=== PATIENT | female | born 1980 | race Caucasian/White ===

== ENCOUNTER 2021-09-16 13:33 | Outpatient (CLI) | payer MEDICAID, SELFPAY ==
--- OUTSIDE RECORDS SUMMARY | 2021-08-12 10:19 | XMS_ITS | Continuity of Care Document ---
:1980 Author Care Team Providers Name Role Phone SEEN Primary Care Physician Unavailable JAYY Cruz Attending Physician Chief Complaint and Reason for Visit Chief Complaint OB Allergies, Adverse Reactions, Alerts Allergen Type Severity Reaction Last Verified Status Updated Amoxicillin Allergy Mild Hives July 20, Yes Active 2021 Penicillin v Allergy Mild hives July 20, Yes Active 2021 Social History Smoking Status Status Start Date End Date Date of Observat ion Never smoked tobacco July 20 11:19am (finding) Additional Data Assigned Sex Female Medications Medication Status Dose Units Route Directions Qty Days Start End Ins tructions Date Date Cholecalcifer Disconti 400 UNIT PO Daily Novem ol (Vitamin nued er D-3) 400 Unit , TAB 2015 11:02a m Clindamycin Disconti 1 % EX Twice A Day June Phosphate nued , (Clindamycin 2007 Phosphate 11:22a Lotion) 1 % m LOT Diphtheria/Te Disconti 0.5 ML IM Once 1 tanus/Acell nued r , er Pertussis 2007, (Adacel) 0.5 8:38am 2007 Ml INJ 11:13a m Fexofenadine- Disconti 1 TAB PO Daily July Pseudoephedri nued , ne (Rachell-D 2021 24 Hour 10:15a Allergy) 24 m Hour TAB Folic Acid Disconti 400 MCG PO Daily Decemb nued er 2013 1:02pm Influenza Disconti 0.2 ML NA Once 1 b Virus Vacc nued r 2nd, er Triv Types 2010 03, A&B (Flumist 3:52pm 2010 Nasal Vaccine 3:55pm [id number]) 0.2 Ml SYR Influenza Disconti 0.5 ML IM Once 1 Novembe Novemb Virus Vacc nued r 30th, er Triv Types 2009 30th, A&B (Fluzone 10:06am 2009 Unit Dose 10:13a ) 0.5 m Ml INJ Influenza Disconti 0.5 ML IM Once 1 Novembe Novemb Virus Vacc nued r 21st, er Triv Types 2007 14, A&B (Fluarix) 8:38am 2007 0.5 Ml INJ 11:13a m Influenza Disconti 0.5 ML IM Once 1 June Virus Vacc nued r 3rd, 15th, Triv Types 2005 2007 A&B (Fluarix) 3:59pm 11:22a 0.5 Ml INJ m Influenza Disconti 0.5 ML IM Once 1 Decee Dece Virus Vacc nued r 28th, er Triv Types 2005, A&B (Fluarix) 4:42pm 2005 0.5 Ml INJ 4:47pm Influenza Disconti 0.2 ML NA Once 1 Novembe Novemb Virus Vaccine nued r 17th, er Live (Flumist 2013 17, Nasal (2-49 3:27pm 2013 Years) 3:28pm ) 1 Leonora LEONORA Influenza Disconti 0.2 ML NA Once 1 [facility] Virus Vaccine nued r 5th, er Live (Flumist 2012 06, Nasal (2-49 10:50am 2012 Years) 11:33a 2013-) 1 m Leonora LEONORA Influenza Disconti 0.2 ML NA Once 1 [facility] Virus Vaccine nued r 7th, er Live Q 2014 08, (Flumist 9:39am 2014 Nasal (2-49 9:46am Years) 2014-) 1 Leonora LEONORA Influenza Disconti 0.5 ML IM Once 1 Novembe Novemb Virus Vaccine nued r 27th, er Split 2016, (Fluzone 1:46pm 2016 Quadrivalent 2:08pm 2016 0.5 Ml) 1 Inj INJ Influenza Disconti 0.5 ML IM Once 1 Novembe Novemb Virus Vaccine nued r 8th, er Split 2015 09, (Fluzone 11:30am 2015 Quadrivalent 11:36a (3 Yrs And m Older)2015- ) 1 Inj INJ Lactic Acid Disconti 12 % EX Twice A Day 1 Februar June apply cream (Ammonium nued y , , 2-3 time s per Lactate) 12 % 2006 2007 day -d ispense CRE 2:07pm 11:22a one bottle m Levocetirizin Disconti 5 MG PO Bedtime 18 August e nued , Dihydrochlori 2021 de (Xyzal 10:15a Allergy 24HR) m 5 Mg TAB Multiple Disconti 1 EA PO Daily Decemb Vitamin nued er (Multi-Vitami , n) TAB 2013 1:02pm Norethindrone Disconti 0.35 MG PO Daily Septem (Contraceptiv nued cesar e) (Susan) , 0.35 Mg TAB 2008 11:39a m Ondansetron Disconti 4 MG PO Three Times May Hcl (Zofran) nued A Day , , 4 Mg TAB 2007 2007 11:13am 11:22a m Tetanus-Dipht Disconti 0.5 ML IM Once June heria Toxoids nued , , (Td (Tenivac) 2017 2017 1 Ml INJ 1:09pm 1:22pm Tramadol Hcl Disconti 50 MG PO Every 6 15 Novembe Novemb nued Hours as r 8th, er needed 2015, 11:34am 2016 11:00a m Triamcinolone Disconti 40 MG IM Once June Acetonide nued , , (Kenalog) 40 2016 2016 Mg/1 Ml INJ 1:40pm 1:44pm Vit Disconti 1 TABLET PO Daily 100 Novemb B12/Iron/Foli nued er c Ac/Intrin 2009 ( 10:02a Multivit-Min m W/Fe-Fa) TAB Immunizations Immunization Event Date Not Given Dose Orchid Hand Lot Vac cine Reason Number Number Informatio n Statement (VIS) Deta il Influenza December 20 Sanofi Pasteur [id number] 2007 Inc Influenza December 21 Sanofi Pasteur [id number] 2009 Influenza December 22 Medimmune [id number] 2010 Influenza January 22 medimmune [id number] 2012 Influenza December 24 Medimmune [id number] 2013 Influenza January 24 Medimmune [id number] 2014 Influenza December 26 Sanofi [id number] 2015 Influenza December 27 Sanofi [id number] 2016 Tetanus/Diptheri July 09 SANOFI [id number] a 2017 Tdap December 20 Sanofi Pasteur [id number] (adolescent/adul 2007 t) Procedures Procedure Date Performed Status ASSAY GLUCOSE BLOOD QUANT July 20, 2021 completed Relevant Diagnostic Tests and/or Laboratory Data Laboratory Results Test Date/Time Result Interpretation Reference Result Perfo rming Range Comment Site Random July 20 60-115 [facility] Glucose 2021 11:05am 2000 No [facility] [address] [address] Vital Signs Vital Reading Result Reference Range Collection Date/ Time Height 69.680 [in_i] July 20, 2021 1 0:13am Height 177 cm July 20, 2021 1 0:13am Weight 167 [lb_av] July 20, 2021 1 0:13am Weight 75.151126 kg July 20, 2021 1 0:13am Body Temperature 98.2 [degF] July 20, 2021 10:13am Body Temperature 36.78 Dona July 20, 2021 10:13am BP Systolic 142 mm[Hg] July 20, 2021 1 0:13am BP Diastolic 82 mm[Hg] July 20, 2021 1 0:13am Heart Rate 60 /min July 20, 2021 1 0:13am Body surface area 1.93 m2 July 20, 2021 10:13am BMI (Body Mass Index) 24.2 kg/m2 July 20, 2021 10:13am Advance Directives Advance Directive Response Recorded Date/Time Does Pt have Health Care No March 13 015 12:02pm Directive? Has patient completed a No July 20, 2021 1 1:19am Health Care Directive? Insurance Providers Guarantor Samantha Tucker Address [address] [id number] Contact Info. Home Phone: Payer Policy Id Coverage Id Subscriber's Subscriber Id Effective E xpiration Name Date Date [facility] [id number] Samantha Tucker Medicaid Plan Encounters Encounter Location(s) Arrival/Admit Date Discharge/Depart Date Provider(s) Registered [place] July 20, 2021 [facility] 10:54am [place] [facility] Registered [facility] July 20, 2021 Richard Cruz 10:15am [place] [facility] Office Visit Women's Health July 20, 2021 Tonya Cruz - [facility] 10:15am [place] [employer]PARTMENT MANAGER Recent Diagnosis Onset Date Screening for diabetes mellitus Well woman exam with routine gynecological exam Screening for breast cancer Assessments Diagnosis Onset Date Resolution Status Screening for diabetes mellitus Well woman exam with routine gynecological exam Screening for breast cancer Plan of Treatment Future Tests Future scheduled test information is unavailable Pending Tests Pending diagnostic test information is unavailable Future Visits Future appointment information is unavailable Referrals to Other Providers Reason for Referral Start Provider Provider Contact Provider Address Referral Date Information Patient will call at a later date to schedule a consult with Dr Ordonez, here at [facility] Ordonez MD Work Phone: [facility]. Insurance eff and active. [address] [facility] [id number] Patient will call at a later date to schedule a consult with Dr Ordonez, here at [facility] Ordonez [facility] Work Phone: [facility]. Insurance eff and active. [address] [facility] [id number] Future Procedures Procedure Name Scheduled Date JOVANNA Bilat Mammo Scrn Future Medications Future medication information is unavailable Patient Instructions Abdominal Pain - Adult Cholelithiasis Goals Ambulatory Goals Reach or maintain optimal well being.
--- NOTE | 2021-09-16 13:40 | CRLHL7_ITS ---
For Patients: As a result of the Century Cures Act, medical imaging exams and procedure reports are released immediately into your electronic medical record. You may view this report before your referring provider. If you have questions, please contact your health care provider. BILATERAL MAMMOGRAM WITH COMPUTER-AIDED DETECTION TECHNIQUE: CC and MLO views were obtained. These mammographic images have been obtained using full-field digital technique. These mammographic images were interpreted with the benefit of computer-aided detection. COMPARISON FILM: Baseline. FINDINGS: The breasts are heterogeneously dense, which may obscure small masses IMPRESSION: There is no radiographic evidence for malignancy. ASSESSMENT: BI-RADS Category 1: Negative RECOMMENDATION: Routine screening mammogram in 1 year. A lay language report of this examination will be provided to the patient. Elliot Tolbert M.D. Diagnostic Radiologist [email or web address] AMBER/Dictated by: Elliot Tolbert MD @ 09/19/2021 9:12:00 AM (Electronically Signed)
== END 2021-09-16 13:34 | disposition home or self-care (01) ==
LOC: MAMMO 13:34
PROVIDERS: Visit Provider Registered Nurse
DX: Z12.31 Encounter for screening mammogram for malignant neoplasm of breast (principal); R92.2 Inconclusive mammogram
CPT/HCPCS: 77067

== ENCOUNTER 2022-08-18 12:31 | Outpatient (CLI) | payer MEDICAID, SELFPAY | END 2022-08-18 12:32 | disposition home or self-care (01) | PROVIDERS: Visit Provider Family Medicine | DX: Z00.00 Encounter for general adult medical examination without abnormal findings (principal); Z11.59 Encounter for screening for other viral diseases; Z13.6 Encounter for screening for cardiovascular disorders | CPT/HCPCS: 80053; 80061; 86803 ==

== ENCOUNTER 2023-05-24 10:45 | Emergency (ER) | payer OTHER, SELFPAY ==
[2023-05-24 10:48] VITALS: BP 140/79; PULSE 92; RESP 24; TEMP 36.9; O2SAT 97; BMI 25.8
[2023-05-24] MEDS: ALBUTEROL SULFATE 2.5 MG/3 ML VIAL.NEB NEB (11:16)
--- NOTE | 2023-05-24 11:30 | ED_ITS ---
HPI - SOB/Dyspnea General Date Seen: 05/24/23 Chief Complaint: Shortness of Breath/Dyspnea Stated Complaint: trouble breathing Time Seen by Provider: 05/24/23 10:55 Source: patient Mode of arrival: ambulatory Limitations: no limitations History of Present Illness HPI Narrative: Patient is a 42-year-old female with no pertinent medical problems presenting to emergency department for shortness of breath. States she has been having symptoms for the past day. Was no since she was gain flu-like symptoms yesterday. She then states states she has been having increased work of breathing has been feeling wheezy. States she had allergy induced asthma as a teen but has not had any lung issues since then. Denies fevers, chills, chest pain, abdominal pain, lightheadedness, dizziness, weakness, numbness. States the only symptom she has is shortness of breath. No other concerns noted Related Data Previous Rx's Medication Instructions Recorded albuterol sulfate 90 mcg/actuation 2 puff inhalation QID PRN 05/24/23 aerosol inhaler shortness of breath or wheezing #6.7 grams Allergies Allergy/AdvReac Type Severity Reaction Status Date / Time amoxicillin Allergy Mild Hives Verified 01/04/23 11:00 penicillin V Allergy Mild Hives Verified 01/04/23 11:00 Review of Systems Status of ROS: Reports: 10 or more systems reviewed and unremarkable except as noted in History and below [facility] Medical History HELLP syndrome ?O14.20 - HELLP syndrome (HELLP), unspecified trimester (ICD-10) Surgical History History of cholecystectomy ?Z90.49 - Acquired absence of other specified parts of digestive tract (ICD- 10) Tubal ligation status ?Z98.51 - Tubal ligation status (ICD-10) History of ?Z98.891 - History of uterine scar from previous surgery (ICD-10) Family History Father Alcohol dependence Depression Mother High cholesterol High blood pressure Social History Smoking Status: Never smoker Little interest or pleasure in doing things: several days Feeling down, depressed, or hopeless: several days Exam Narrative: Exam Narrative: Const: Well-nourished, Well-developed, in mild distress Eyes: PERRL, no conjunctival injection, and symmetrical lids HENT: Atraumatic external nose and ears. Moist mucous membranes. Neck: Symmetric, trachea midline, No thyromegaly. CVS: RRR, No murmurs or gallops. Peripheral pulses 2+ and equal in all extremities RESP: Unlabored respiratory effort. Diffuse mild wheezes GI: Nontender/Nondistended, No rebound or guarding. MSK:Extremities w/o deformity, Normal Active ROM Skin: Warm, Dry. No rashes or lesions. Neuro: Normal Muscle tone, No focal neurological deficits. Psych: Awake, Alert, & Oriented x3. Appropriate mood and affect. Const: Vital Signs, click to edit/add: Vital Signs - 24 hr 05/24/23 10:48 Temperature 98.4 F Pulse Rate [Pulse Oximeter] 92 Respiratory Rate 24 Blood Pressure [Ri ght Upper Arm] 140/79 H Pulse Oximetry 97 Oxygen Delivery Me thod Room Air Course Vital Signs Vital signs: Initial Vital Signs Temperature 98.4 F 05/24/23 10:48 Temperature Source Temporal Artery Scan 05/24/23 10:48 Pulse Rate 92 05/24/23 10:48 Respiratory Rate 24 05/24/23 10:48 Blood Pressure 140/79 H 05/24/23 10:48 Blood Pressure Mean 99 05/24/23 10:48 Blood Pressure Position Supine 05/24/23 10:48 Pulse Oximetry 97 05/24/23 10:48 Oxygen Delivery Method Room Air 05/24/23 10:48 Vital Signs Temperature 98.4 F 05/24/23 10:48 Pulse Rate 92 05/24/23 10:48 Respiratory Rate 24 05/24/23 10:48 Blood Pressure 140/79 H 05/24/23 10:48 Pulse Oximetry 97 05/24/23 10:48 Oxygen Delivery Method Room Air 05/24/23 10:48 Temperature 98.4 F 05/24/23 10:48 Pulse Rate 92 05/24/23 10:48 Respiratory Rate 24 05/24/23 10:48 Blood Pressure 140/79 H 05/24/23 10:48 Pulse Oximetry 97 05/24/23 10:48 Oxygen Delivery Method Room Air 05/24/23 10:48 Medications Administered Medications: Discontinued Medications Generic Name Dose Route Start Last Admin Trade Name Blu PRN Reason Stop Dose Admin Albuterol 2.5 mg 05/24/23 11:02 05/24/23 11:16 Albuterol Sulfate 2.5 Mg/3 Ml Vial.Radha SCHAEFER 05/24/23 11:03 2.5 mg ONCE ONE Administration MDM - SOB/Dyspnea MDM Narrative Medical decision making narrative: Patient is a 42-year-old female presenting for shortness of breath. Symptoms started last night and got worse this morning. On exam the hear wheezing. I will give her breathing treatment to see if this helps. Will check a COVID/flu/RSV. I talked about a chest x-ray to look for signs of pneumonia or pneumothorax. Her and her would like tried a breathing treatment 1st to see if that helps and if it does not would be okay with the chest x-ray. This seems reasonable as her vital signs are otherwise normal. She received the albuterol treatment and is feeling much better she states. Wheezing has resolved. We will hold off on doing left chest x-ray at this time. If patient has no history of prior PE/DVT, is not on any hormonal use, no history of unilateral leg swelling, denies hemoptysis, denies recent trauma or surgeries. Vital signs otherwise look good. She is PERC negative. PE is unlikely. She will be discharged home with a albuterol inhaler and a spacer. She is agreeable to this plan. Lab Data Labs: Lab Results 05/24/23 Range/Units 10:55 SARS-CoV-2 (PCR) Negative SARS-CoV-2 (Negative) Influenza Type A (PCR) Negative PCR FLU A (Negative) Influenza Type B (PCR) Negative PCR FLU B (Negative) RSV (PCR) Negative PCR RSV (Negative) Discharge Plan Discharge Clinical Impression: Shortness of breath Patient Disposition: Home, Self-Care Condition: Improved Instructions: Wheezing (ED) Additional Instructions: If the shortness of breath returns you can use the prescribed inhaler. Make sure to also use the spacer. Follow-up with your primary care provider symptoms seem to persist. Return to emergency department for new or worsening symptoms Prescriptions: New albuterol sulfate 90 mcg/actuation HFA aerosol inhaler 2 puff inhalation QID PRN (Reason: shortness of breath or wheezing) Qty: 6.7 0RF Follow Up/Referrals: Provider,Not a Local [Primary Care Provider] - Stand Alone Forms: [facility] Info Instructions
[2023-05-24 11:40] LABS: PCR FLU A Negative PCR FLU A (Negative); PCR FLU B Negative PCR FLU B (Negative); PCR RSV Negative PCR RSV (Negative); SARS PCR* Negative SARS-CoV-2 (Negative)
== END 2023-05-24 11:59 | disposition home or self-care (01) ==
PROVIDERS: Emergency Provider Student in an Organized Health Care Education/Training Program
DX: R06.02 Shortness of breath (principal)
CPT/HCPCS: 87631; 94640; 99282; 99283; 99284